=== PATIENT | female | born 1985 | race Caucasian/White ===

== ENCOUNTER 2020-11-05 16:00 | Emergency (ER) | payer OTHER ==
[2020-11-05 16:56] LABS: HEMOGLOBIN 13.6 gm/dl (12.3-15.3); RED BLOOD COUNT 4.37 M/UL (4.00-5.10); WHITE BLOOD COUNT 9.7 K/UL (4.5-11.0)
[2020-11-05 17:22] LABS: BUN/CREATININE RATIO 12 (0-10)
== END 2020-11-05 20:04 | disposition home or self-care (01) ==
LOC: ER1 16:00
PROVIDERS: Physician Assistant Medical
DX: O20.9 Hemorrhage in early pregnancy, unspecified (principal); Z3A.01 Less than 8 weeks gestation of pregnancy; Z90.49 Acquired absence of other specified parts of digestive tract
CPT/HCPCS: 76817; 80053; 81001; 84702; 85025; 86900; 86901; 99284

== ENCOUNTER 2020-11-18 11:07 | Emergency (ER) | payer OTHER ==
[2020-11-18 12:17] LABS: HEMOGLOBIN 13.9 gm/dl (12.3-15.3); RED BLOOD COUNT 4.4 M/UL (4.00-5.10); WHITE BLOOD COUNT 7.7 K/UL (4.5-11.0)
[2020-11-18 12:50] LABS: BUN/CREATININE RATIO 13 (0-10)
== END 2020-11-18 14:00 | disposition home or self-care (01) ==
LOC: ER1 11:07
PROVIDERS: Emergency Medicine
DX: O03.9 Complete or unspecified spontaneous abortion without complication (principal); Z3A.01 Less than 8 weeks gestation of pregnancy
CPT/HCPCS: 76801; 80053; 81001; 84702; 85025; 86900; 86901; 99284; J7030

== ENCOUNTER 2021-04-19 13:13 | Emergency (ER) | payer OTHER ==
[2021-04-19 14:09] LABS: HEMOGLOBIN 13.1 gm/dl (12.3-15.3); RED BLOOD COUNT 4.31 M/UL (4.00-5.10)
[2021-04-19 14:33] LABS: BUN/CREATININE RATIO 12 (0-10)
== END 2021-04-19 17:25 | disposition home or self-care (01) ==
LOC: ER1 13:13
PROVIDERS: Preventive Medicine Occupational Medicine
DX: R07.89 Other chest pain (principal); Z90.49 Acquired absence of other specified parts of digestive tract
CPT/HCPCS: 71045; 80053; 81001; 82550; 82553; 83690; 83874; 84484; 84703; 85025; 85379; 93005; 99285